=== PATIENT | female | born 1990 | race Caucasian/White ===

== ENCOUNTER → 2016-07-16 13:04 | Observation (INO) ==
[2016-07-16 11:08] VITALS: BP 121/74
--- NOTE | 2016-07-16 11:57 | OB/GYN History & Physical ---
Date of Encounter: 07/16/16 Time of Encounter: 11:50 Assessment and Plan (1) 38 weeks gestation of Current visit: Yes Status: Acute Labor eval Bedside JANICE per Dr Aburto Serial Cervical exams POC per consult with Dr Aburto. History of Present Illness Chief complaint: Proteinuria HPI: Ms. Luna is a 26 year old female at 38 weeks 5 days gestation that is here for a labor evaluation. She was seen in the office today for a routine appointment and c/o increased fatigue, irregular contractions, and measuring smaller than dates. She states positive movement; she denies LOF, vaginal bleeding, headache, visual disturbance, and epigastric pain. She has a history of kidney stones in the first trimester; the remainder of her was normal. She is GBS negative. She is O positive and varicella equivocal. She is immune to rubella and she is not positive for HIV or Hepatitis B. Past Med Surg Social Fam HX - Past Medical History Psychiatric history: no psych history - Social History Smoking Status: Never smoker - Family History Mother Living Status: Still Living Obstetrical History - Pregnancies : 2 Para: 1 Term: 1 : 0 Ab's: 0 Livin Medications and Allergies Complete Caplet 1 tab PO DAILY 07/16/16 [History] Allergies No Known Allergies Allergy (Verified 07/16/16 11:06) Review of System OB All systems PM: reviewed and no additional remarkable complaints except as stated Exam - Vital Signs Vital signs: Initial Vital Signs Temp Pulse Resp BP 98.0 F 76 14 121/74 07/16/16 10:39 07/16/16 10:39 07/16/16 10:39 07/16/16 10:39 - Constitutional Constitutional: well developed, well nourished, no acute distress, average body habitus - HEENT HEENT: Mucus Membranes Moist - Neck Neck exam: full ROM, normal inspection - Lungs Respiratory exam: CTAB - Cardiovascular Cardiovascular exam: RRR, +S1, +S2 - Abdomen Abdomen: Present: bowel sounds normal, gravid, non tender - Extremities Extremities exam: normal capillary refill, normal inspection, radial pulses palpable and symetrical Deep Tendon Reflex Grade: 2+ Normal - Cervix Dilation: 5 (per office today) Effacement: 70 (per office today) Station: 0 - Uterus Uterus exam: Present: normal size - Comments Comments: FHTs 135 with moderate variability and no decels noted TOCO no contractions noted; uterus palpates soft. Results All other labs normal. - VTE Reasons for not Prescribing Prophylaxis: Treatment not Indicated - Low risk for VTE
--- NOTE | 2016-07-16 13:00 | Discharge Summary ---
Date of Encounter: 07/16/16 Time of Encounter: 13:01 - Discharge Diagnosis (1) 38 weeks gestation of Priority: Primary Status: Acute Comments: Discharge home with labor precautions. No cervical change since being seen in the office this morning. Follow up in office with routine care as ordered. - Discharge Medications Home Medications: Complete Caplet 1 tab PO DAILY 07/16/16 [History] Allergies/Adverse Reactions: Allergies No Known Allergies Allergy (Verified 07/16/16 11:06) Date of admission: 07/16/16 10:27 Primary care physician: PCP NO Discharging clinician: Kary Jarquin - Patient Status Disposition: Home, Self-Care Condition: Good Functional capacity at discharge: independent ambulation - Discharge Instructions Follow Up With: DAYAMI,PCP [Primary Care Provider] - Mary Aburto MD [Partnered Physician] - Additional Instructions: LABOR AND DELIVERY DISCHARGE INSTRUCTIONS Signs and Symptoms to be Reported to your Doctor Immediately: * Sudden gush, continuous or intermittent lead of fluid from vagina (note the time of gush and color of fluid) * Onset of bright red vaginal bleeding with or without pain (if you had a vaginal exam during this visit you may notice some dark red spotting. This is normal.) * Contractions that are 5 minutes apart (from the beginning of one contraction to the beginning of the next) and last 45-60 seonds; contractions that you can no longer walk, talk or laugh through. * A change in the baby's activity. This could be an increase or decrease in activity. * Severe headache which does not go away with tylenol. * Sudden swelling in the face, hands, arms and/or legs. * Upper abdominal pain - sometimes associated with heartburn or nausea and is not relieved by Maalox, Mylanta or Tums. * Kick Counts __ One hour after a meal, lay down on one side in a quiet place. Count the number of time the baby moves during an hour. If less than 6 movements, notify your physician Diet: *Force fluids, 8 to 10 tall glasses of fluid per day - may include popsicles and jello *Limit caffeine - this includes chocolate, coffee, tea, any soft drink containing such as all cassidy, Spencer Yellow and Mountain Dew - Diet and Activity Activity: increase activity as tolerated Diet: regular diet Hospital Course [employer] Time Attestation: Total time spent providing and/or coordinating discharge services: Time Spent: Less than 30 minutes Exam - Constitutional Vitals: Temp Pulse Resp BP 98.0 F 76 14 121/74 07/16/16 10:39 07/16/16 10:39 07/16/16 10:39 07/16/16 10:39 General appearance IM: cooperative, A&O X 3, pleasant - Respiratory Respiratory exam: Present: CTAB - Cardiovascular Cardiovascular exam IM: Present: RRR, +S1, +S2 - GI/Abdominal GI/Abdominal exam IM: normal bowel sounds, soft - Additional comments: Uterus measures appropriately for gestational age. Cervix 5/70/-1 soft midposition fetus vertex; no change from previous check FHTs 135 moderate variability with accels; category I TOCO no contractions, uterus palpates soft - VTE Reasons for not Prescribing Prophylaxis: Treatment not Indicated - Low risk for VTE
== END | disposition home or self-care (01) ==
LOC: 1NENULAB
PROVIDERS: ADMIT Obstetrics & Gynecology; ATTEND Obstetrics & Gynecology

== ENCOUNTER 2016-07-16 21:51 | Inpatient (IN) ==
--- NOTE | 2016-07-16 17:15 | OB/GYN Progress Note ---
Date of Encounter: 07/16/16 Time of Encounter: 17:04 - Assessment and Plan (1) Uterine contractions during Current Visit: Yes Status: Acute Following for active labor (2) 38 weeks gestation of Current Visit: No Status: Acute Subjective - Subjective Principal diagnosis: 38 wk Labor eval Interval history: The patient is a 26-year-old female at 38 weeks 5 days. Returns to labor and delivery with concerns of onset of labor with increasing pressure and contractions. She denies loss of fluid or vaginal bleeding other than show from exams. Fetus has been active. Antepartum ROS: movement normal, contractions, no loss of fluid, no vaginal bleeding Objective - Vital Signs Vital Signs: Intake and Output 07/16/16 07/16/16 07/16/16 07:59 15:59 23:59 Other: Weight 80.1 kg Patient Weight 07/16/16 23:59 Weight 80.1 kg - Exam FHR: category 1 FHR comments: 120s baseline, ctx q 5-7' Auscultation: bilateral: normal Abdomen: Present: soft, gravid. Absent: tenderness Cervical dilation: 6 Cervix effacement: 80 station: -1 - Allied health notes Allied health notes reviewed: nursing
[2016-07-16 19:02] LABS: Basophils % 0.3 %; Eosinophils # 0.1 K/mcL (0.0-0.6); Hematocrit 39.8 % (35.3-44.9); Hemoglobin 13.3 g/dL (11.5-15.4); Immature Granulocytes % 0.5 % (0-4); Immature Platelets 3.5 % (1.1-6.1); Lymphocytes # 1.8 K/mcL (0.6-4.6); Lymphocytes % 17.1 %; Mean Corpuscular HGB Conc 33.4 g/dL (31.6-35.5); Mean Corpuscular Hemoglobin 29.2 pg (28.0-33.3); Mean Corpuscular Volume 87.3 fL (83.0-100.0); Mean Platelet Volume 9.6 fL (9.4-12.4); Monocytes # 0.6 K/mcL (0.0-1.3); Monocytes % 5.4 %; Platelet Count 217 K/mcL (140-400); Red Blood Count 4.56 M/mcL (3.82-4.97); Red Cell Distribution Width 13.6 % (11.5-14.5); Segmented Neutrophils % 75.7 %
--- NOTE | 2016-07-16 19:12 | Anesthesia Evaluation PreOp ---
Date of Encounter: 07/16/16 Time of Encounter: 18:50 - Past History Planned Operation: epidural Cardiac History: Denies any Significant Hx Pulmonary History: Denies Any Significant HX KETTLE GIRL History: Denies Any Significant HX Other Medical History: Renal (stones) Anesthesia History: No Prior Anesthetic Complications (vag delivery X1) : Yes Test: Positive Alcohol Use: none Drug use: none Medications and Allergies Complete Caplet 1 tab PO DAILY 07/16/16 [History] Allergies No Known Allergies Allergy (Verified 07/16/16 11:06) - Meds/Allergy Pre-op Review Medications Reviewed: Yes Allergies Reviewed: Yes Beta Blockers on Current Med List: No Anesthesia Results - Labs 07/16/16 18:50 Anesthesia Exam 3 Vital Signs Time 1850 BP 116/78 Pulse 76 Resp 16 O2 Sat Height: 65 Weight: 177 pounds NPO (# of Hours): 1400 lunch Pain Scale: 6 Pain Scale Used: Numeric (1 - 10) - HEENT Pupil (Motor): Pupils equal Mallampati: II Teeth: Normal Oral Opening: Greater than 3 - KETTLE GIRL LOC: Oriented KETTLE GIRL Motor: Normal RUE, Normal LUE, Normal RLE, Normal LLE, Normal Face KETTLE GIRL Sensory: Normal: RUE, LUE, RLE, LLE, Face - Cardiac Rhythm: Regular Murmur: None JVD: No Carotid Bruit: No - Pulmonary Breath Sounds: bilateral Clear Respiratory Effort: Symmetrical Anesthesia Assess/Plan ASA Score: 2 Modified [place] Scale for Level of Consciousness: Cooperative, oriented, and tranquil Anesthetic Plan: Regional Monitoring Plan: Standard Monitors Recovery Plan: Other
--- NOTE | 2016-07-16 19:29 | OB Labor Progress Note ---
Date of Encounter: 07/16/16 Time of Encounter: 19:06
--- NOTE | 2016-07-16 19:34 | OB/GYN History & Physical ---
Date of Encounter: 07/16/16 Time of Encounter: 19:32 Assessment and Plan (1) Uterine contractions during Current visit: Yes Status: Acute (2) 38 weeks gestation of Current visit: No Status: Acute History of Present Illness HPI: Addendum: please see H&P dictated earlier today at 1150, 07/16/16. Patient was admitted and then discharged and has returned in spontaneous active labor. Past Med Surg Social Fam HX - Past Medical History Medical history: no medical history Psychiatric history: no psych history - Past Surgical History Surgical History: other - Social History Smoking Status: Never smoker Smokeless Tobacco Status: No Alcohol use: none Drug use: none - Family History Mother Living Status: Still Living Obstetrical History - Pregnancies : 2 Medications and Allergies Complete Caplet 1 tab PO DAILY 07/16/16 [History] Allergies No Known Allergies Allergy (Verified 07/16/16 11:06) Results Result Diagrams: 07/16/16 18:50 All other labs normal. - VTE Reasons for not Prescribing Prophylaxis: Treatment not Indicated - Low risk for VTE
--- NOTE | 2016-07-16 19:39 | OB Labor Progress Note ---
Date of Encounter: 07/16/16 Time of Encounter: 19:34 Labor Progress Note - Subjective Subjective: Pt uncomfortable with contractions. No LOF or VB. +FM - Vital Signs Vital Signs: Afeb, VSS - Cervix Cervix: 6-7/90/0 vtx w/ BBOF - Heart Tones Heart Tones: 120s baseline, CAT 1 - Tracy Tracy: tx q 4-7', spontaneous - Interventions Interventions: 38w5d IUP in spontaneous labor - Plan Plan: Pain management, anticipate vaginal delivery
--- NOTE | 2016-07-16 20:46 | Anesthesia Procedures ---
Date of Encounter: 07/16/16 Time of Encounter: 20:00 Procedures: Anesthesia - Epidural/Spinal Patient ID/Chart reviewed: Yes Patient examined: Yes OB Eval: Gestational age: 38 weeks 5 days OB Eval: : 2 OB Eval: Hx Para: 1 OB Eval: Dilated at (cm): 7 OB Eval: Contractions: Non-stressed pattern Consent Obtained: Yes Supplemental Oxygen: None/Room Air Site Prep: Aseptic Technique, Sterile prep and drape, Povidone-Iodine 1% Patient position: upright Local Anesthetic: Lidocaine 1% Amount of Local Anesthetic used: 3 Touhy Needle Gauge: 18 Touhy Needle Depth (cm): 4 Catheter Depth at Skin (cm): 11 Test Dose (1.5% Lido + Epi): Volume given (mls): 3 Test Dose Result: Negative Loading Dose: 0.25% Marcaine (mls): 5 Loading Dose: Fentanyl (mcg): 100 Loading Dose: Other: 3 ml saline Loading Dose Administered: Thru Catheter Infusion Med: 0.125% Bupivacaine w/ 2 mcg/ml Fentanyl Infusion Rate (mls/hr): [address]: Tegaderm, Tape Interspace Used: L2-L3 Loss of Resistance (JEFRY): Yes (air) Blood: No CSF: No Paresthesia: No Procedure: 3 Vital Signs Time 1999 start 2010 test 2017 bolus 2025 finish BP 123/79 135/88 117/73 116/72 Pulse 80 69 87 72 Resp 16 16 16 16 O2 Sat heart tones 140 throughout
--- NOTE | 2016-07-16 21:27 | OB Labor Progress Note ---
Date of Encounter: 07/16/16 Time of Encounter: 21:25 Labor Progress Note - Subjective Subjective: The patient is comfortable with her epidural - Vital Signs Vital Signs: Afebrile vital signs stable - Cervix Cervix: 7cm/90/0, bulgy bag of water, vtx - Heart Tones Heart Tones: 120s baseline, CAT 1 - [place]: Contractions every 3-5 minutes, spontaneous - Interventions Interventions: 38 weeks 5 days IUP in spontaneous labor, anticipate vaginal delivery, status post epidural for pain management - Plan Plan: Amniotomy with moderate amount of pink tinged fluid without meconium noted.
[~2016-07-16 21:51] MED LIST: *HR* FentaNYL (PF) 100 MCG/2 ML VIAL EP ONE; *HR* FentaNYL (PF) 100 MCG/2 ML VIAL ONE; 0.9 % Sodium Chloride Mini Bag 100 ML ONE; Bupivacaine-MPF 0.25% 10 ML VIAL EP ONE; Bupivacaine-MPF 0.25% 10 ML VIAL ONE; Epidural Premix (fent/bupiv) 110 ML EP ONE; Epidural Premix (fent/bupiv) 110 ML EP SCH; Famotidine 20 MG/2 ML VIAL IVP PRN; Metoclopramide 10 MG/2 ML VIAL IVP PRN; Naloxone 0.4 MG/ML INJ IVP PRN; Ondansetron 4 MG/2 ML VIAL IVP ONE; Ondansetron 4 MG/2 ML VIAL ONE; Ondansetron 8 MG in 0.9 % Sodium Chloride 50 ML IVPB ONE; Ringers Solution, Lactated 1,000 ML IVC SCH; Ringers Solution, Lactated 1,000 ML ONE
[2016-07-16] MEDS ORDERED: Oxytocin 20 units/ LR 1000 mL 20 UNIT/1,000 ML BAG IVC ONE (23:33)
--- NOTE | 2016-07-17 00:25 | OB/GYN Procedure Note ---
Delivery - Delivery Date: 07/16/16 Provider: Mary Aburto Intrapartum events: none Delivery induction: none Delivery augmentation: rupture of membranes Delivery monitor: external FHT, external uterine Anesthesia: epidural Estimated Blood Loss: 200 - (s) Infant A Delivery Date: 07/16/16 Infant Delivery Time: 23:44 Presentation: vertex Position: YANCY Route of delivery: Gender: Female Viability: Viable Pounds: 7 Ounces: 8 at 1 minute: 9 at 5 mins: 10 Shoulder Dystocia: not encountered Placenta: spontaneous, uterine exploration Cord: nuchal cord, 3 umbilical vessels, nuchal reduced - Repair Episiotomy: none Laceration Description: Periurethral, Perineal - 2nd Degree, Labial, Superficial - Complications Delivery complications: none Delivery comments: The patient was complete and pushing with epidural anesthesia and in 1 contraction a spontaneous vaginal delivery in the YANCY position of a vigorous female weighing 7 lbs. 8 oz. with Apgars of 9 at 1 minute and 10 at 5 minutes. was placed on the maternal abdomen. The cord was clamped and cut after pulsations ceased. Cord blood obtained. The placenta was delivered spontaneous and intact. Superficial right labial laceration was hemostatic and not repaired. There is a first-degree perineal laceration which was hemostatic and was repaired with 4-0 Vicryl in a subcuticular fashion. Second-degree midline perineal laceration which was parallel to the superficial laceration was repaired with 3-0 Vicryl in the usual fashion. Estimated blood loss 200 mL , complications none - Disposition Mom disposition: stable in LDR disposition: stable in LDR
[2016-07-17] MEDS ORDERED: Oxytocin 20 units/ LR 1000 mL 20 UNIT/1,000 ML BAG IVC ONE (00:56)
[2016-07-17] MEDS ORDERED: Measles/Mumps/Rubella Vacc 0.5 ML VIAL SQ PRN (02:34)
[2016-07-17] MEDS ORDERED: Acetaminophen 325 MG TABLET PO PRN (02:34)
[2016-07-17] MEDS ORDERED: Oxytocin 20 units/ LR 1000 mL 20 UNIT/1,000 ML BAG IVC SCH (02:34)
[2016-07-17] MEDS ORDERED: *HR* HYDROcodone/Acet 5/325 mg TABLET PO PRN (02:34)
[2016-07-17] MEDS ORDERED: Ondansetron 4 MG/2 ML VIAL IVP ONE (02:37)
[2016-07-17] MEDS: Ibuprofen 600 MG TABLET PO PRN ×2 (03:37→16:30)
[2016-07-17 06:23] LABS: Basophils % 0.2 %; Eosinophils # 0.1 K/mcL (0.0-0.6); Eosinophils % 0.9 %; Hematocrit 30.3 % (35.3-44.9); Immature Granulocytes % 0.7 % (0-4); Immature Platelets 2.7 % (1.1-6.1); Lymphocytes # 1.5 K/mcL (0.6-4.6); Lymphocytes % 11.9 %; Mean Corpuscular HGB Conc 33.3 g/dL (31.6-35.5); Mean Corpuscular Hemoglobin 29.4 pg (28.0-33.3); Mean Corpuscular Volume 88.3 fL (83.0-100.0); Monocytes # 0.6 K/mcL (0.0-1.3); Monocytes % 5.1 %; Neutrophils # 9.9 K/mcL (1.6-8.9); Platelet Count 167 K/mcL (140-400); Red Blood Count 3.43 M/mcL (3.82-4.97); Red Cell Distribution Width 13.7 % (11.5-14.5); Segmented Neutrophils % 81.2 %
[2016-07-17 06:24] LABS: Hemoglobin 10.1 g/dL (11.5-15.4)
[2016-07-17] MEDS ORDERED: Benzocaine/Menthol 56 GM AEROSOL SPRAY TP PRN (08:24)
[2016-07-17] MEDS ORDERED: Benzocaine/Menthol 56 GM AEROSOL SPRAY TP ONE (08:26)
[2016-07-17] MEDS: Prenatal Vit/FA 1 EACH TABLET PO SCH (08:34)
--- NOTE | 2016-07-17 08:49 | OB/GYN Progress Note ---
Date of Encounter: 07/17/16 Time of Encounter: 08:47 - Assessment and Plan (1) Vaginal delivery Current Visit: Yes Status: Acute Stable in . Continue current management plan. Anticipate DC tomorrow. Subjective - Subjective Interval history: Pt states feels well. Pain well managed on po pain medication. Patient reports: appetite normal, voiding normally, pain well controlled, ambulating normally : doing well Objective - Latest Vital Signs Latest vital signs: Vital Signs Temp Pulse Resp BP Pulse Ox 07/17/16 08:10 97.8 F 80 12 99/69 96 07/17/16 04:35 97.9 F 65 14 97/57 99 07/17/16 03:30 98.6 F 74 14 105/66 100 07/17/16 02:30 97.6 F 76 16 101/67 98 Intake and Output 07/16/16 07/17/16 07/17/16 23:59 07:59 15:59 Intake Total 200 / 200 Output Total 300 / 300 Balance -300 / -300 200 / 200 Intake: Oral 200 / 200 Output: Urine 300 / 300 Other: Weight 80.1 kg 76.113 kg Patient Weight 07/17/16 23:59 Weight 76.113 kg - Exam Lungs: bilateral: normal Chest: Normal S1, Normal S2 Extremities: Present: normal Abdomen: Present: normal appearance Uterus: Present: normal Uterus Position: At Umbilicus, Midline - Labs Labs: Laboratory Results - last 24 hr 07/16/16 07/17/16 18:50 05:35 WBC 10.6 12.2 H RBC 4.56 3.43 L Hgb 13.3 10.1 L D Hct 39.8 30.3 L MCV 87.3 88.3 MCH 29.2 29.4 MCHC 33.4 33.3 RDW 13.6 13.7 Plt Count 217 167 MPV 9.6 10.0 Immature Gran % 0.5 0.7 Seg Neutrophils % 75.7 81.2 Lymphocytes % 17.1 11.9 Monocytes % 5.4 5.1 Eosinophils % 1.0 0.9 Basophils % 0.3 0.2 Neutrophils # 8.0 9.9 H Lymphocytes # 1.8 1.5 Monocytes # 0.6 0.6 Eosinophils # 0.1 0.1 Basophils # 0.0 0.0 Immature Plt Fraction 3.5 2.7
[2016-07-18] MEDS: Ibuprofen 600 MG TABLET PO PRN ×2 (02:14→08:35)
[2016-07-18] MEDS: Prenatal Vit/FA 1 EACH TABLET PO SCH (09:31)
[2016-07-18 09:49] VITALS: BP 101/66
--- NOTE | 2016-07-18 11:10 | Discharge Summary ---
Date of Encounter: 07/18/16 Time of Encounter: 11:07 - Discharge Diagnosis (1) Mother currently breast-feeding Priority: Secondary Status: Acute (2) Vaginal delivery Priority: Primary Status: Acute Comments: Pt meeting milestones. - Discharge Medications Prescriptions: Ibuprofen [Motrin] 600 mg PO Q6HR PRN #60 tablet PRN Reason: Mild To Moderate Pain Docusate [Colace] 100 mg PO BID #60 capsule Home Medications: Complete Caplet 1 tab PO DAILY 07/16/16 [History] Benzocaine/Menthol [place] [Dermoplast [place]] 1 appl TP QID PRN #0 aerosol [Rx] Docusate [Colace] 100 mg PO BID #60 capsule 07/18/16 [Rx] Ibuprofen [Motrin] 600 mg PO Q6HR PRN #60 tablet 07/18/16 [Rx] Allergies/Adverse Reactions: Allergies No Known Allergies Allergy (Verified 07/16/16 11:06) Data Procedures and tests throughout hospitalization: Laboratory Tests 07/16/16 07/17/16 18:50 05:35 WBC 10.6 12.2 H RBC 4.56 3.43 L Hgb 13.3 10.1 L D Hct 39.8 30.3 L MCV 87.3 88.3 MCH 29.2 29.4 MCHC 33.4 33.3 RDW 13.6 13.7 Plt Count 217 167 MPV 9.6 10.0 Immature Gran % 0.5 0.7 Seg Neutrophils % 75.7 81.2 Lymphocytes % 17.1 11.9 Monocytes % 5.4 5.1 Eosinophils % 1.0 0.9 Basophils % 0.3 0.2 Neutrophils # 8.0 9.9 H Lymphocytes # 1.8 1.5 Monocytes # 0.6 0.6 Eosinophils # 0.1 0.1 Basophils # 0.0 0.0 Immature Plt Fraction 3.5 2.7 Date of admission: 07/16/16 21:51 Primary care physician: PCP NO Consults: 07/17/16 02:34 Consult to Laminator Preforms [CONS] Routine Comment: Vaginal delivery, consult needed Discharging clinician: Lori Garcia Anticipated date of discharge: 07/18/16 - Patient Status Disposition: Home, Self-Care Condition: Good Functional capacity at discharge: independent ambulation Overall status at discharge: patient is progressing back to baseline - Discharge Instructions Follow Up With: NO,PCP [Primary Care Provider] - Mary Aburto MD [Partnered Physician] - - Diet and Activity Activity: increase activity as tolerated Diet: regular diet Hospital Course Reason for admission: active labor Delivery: Episiotomy: none Laceration: 2nd degree Other procedures: none complications: none Discharge diagnosis: IUP at term delivered [place] baby: female Hospital course: - Delivery Date: 07/16/16 Provider: Mary Aburto Intrapartum events: none Delivery induction: none Delivery augmentation: rupture of membranes Delivery monitor: external FHT, external uterine Anesthesia: epidural Estimated Blood Loss: 200 - Infant (s) A Infant Delivery Date: 07/16/16 Delivery Time: 23:44 Presentation: vertex Position: YANCY Route of delivery: Gender: Female Viability: Viable Pounds: 7 Ounces: 8 at 1 minute: 9 at 5 mins: 10 Shoulder Dystocia: not encountered Placenta: spontaneous, uterine exploration Cord: nuchal cord, 3 umbilical vessels, nuchal reduced - Repair Episiotomy: none Laceration Description: Periurethral, Perineal - 2nd Degree, Labial, Superficial - Complications Delivery complications: none - Disposition Mom disposition: home PPD#2 disposition: home with mother, . Time Attestation: Total time spent providing and/or coordinating discharge services: Time Spent: Less than 30 minutes Exam - Constitutional Vitals: Temp Pulse Resp BP Pulse Ox 97.7 F 85 16 101/66 97 07/18/16 09:44 07/18/16 09:44 07/18/16 09:44 07/18/16 09:44 07/18/16 09:44 General appearance IM: A&O X 3, pleasant, no acute distress - Respiratory Respiratory exam: Present: CTAB - Cardiovascular Cardiovascular exam IM: Present: RRR, +S1, +S2 - GI/Abdominal GI/Abdominal exam IM: soft - Rectal Rectal exam: deferred - Uterine Tone: Firm Uterus Position: 1 Finger Below Umbilicus - Extremities Exam Extremities exam IM: Present: normal inspection - Neurological Exam Neurological exam: normal gait, oriented X3 - Psychiatric Additional comments: reports good mood
== END 2016-07-18 12:30 | disposition home or self-care (01) | DRG 775 ==
LOC: 1NENULAB → 1NENUOBS 07-17 02:54
PROVIDERS: ADMIT Obstetrics & Gynecology; ATTEND Obstetrics & Gynecology

== ENCOUNTER 2018-02-03 07:07 | Inpatient (IN) ==
[2018-02-03] MEDS ORDERED: Famotidine 20 MG/2 ML VIAL IVP PRN (08:20)
[2018-02-03] MEDS ORDERED: Ondansetron 4 MG/2 ML VIAL IVP PRN (08:20)
[2018-02-03] MEDS ORDERED: Metoclopramide 10 MG/2 ML VIAL IVP PRN (08:20)
[2018-02-03] MEDS ORDERED: Naloxone 0.4 MG/ML INJ IVP PRN (08:20)
[2018-02-03] MEDS ORDERED: *HR* Nalbuphine 10 MG/ML AMPUL IVP PRN (08:20)
[2018-02-03] MEDS ORDERED: Penicillin G Potassium 5,000,000 UNIT in 0.9 % Sodium Chloride Mini Bag 100 ML IVPB ONE (08:26)
[2018-02-03] MEDS ORDERED: miSOPROStol 25 MCG TABLET PO PRN (08:37)
--- NOTE | 2018-02-03 08:53 | History & Physical Report ---
Date of Encounter: 02/03/18 Time of Encounter: 08:52 24 Hour HP Update - Instructions Instructions: If the History and Physical is less than 30 days old and was completed prior to A.M. admission and or procedure and has NOT been updated on calendar day of procedure please complete this update prior to performing procedure. - Update Patient reports changes in Medical Condition: Yes Changes in examination, assessment, or condition: Yes Changes in Medication: No Preop tests/diagnostics Reviewed: Yes Surgery Remains Indicated: Yes Consent for Planned Operative Procedure(s) Verified: Yes Review of Patient reveals the following changes:: /-2 vtx Additions to current History and Physical: Irregular ctx at home - Pre-Operative Checklist Preoperative Checklist Indicated: Yes Prophylactic Antibiotic Ordered: Yes Home Medications Include Beta Candie: No Is VTE Prophylaxis Indicated?: NO
[2018-02-03] MEDS: Ringers Solution, Lactated 1,000 ML IVC SCH ×2 (09:02→13:03)
[2018-02-03 09:09] LABS: Basophils % 0.3 %; Eosinophils % 1.1 %; Hemoglobin 11.5 g/dL (11.5-15.4); Immature Granulocytes % 0.6 % (0-4); Mean Corpuscular HGB Conc 32.9 g/dL (31.6-35.5); Mean Corpuscular Hemoglobin 27.8 pg (28.0-33.3); Mean Corpuscular Volume 84.5 fL (83.0-100.0); Mean Platelet Volume 9.6 fL (9.4-12.4); Monocytes % 6.3 %; Platelet Count 250 K/mcL (140-400); Red Blood Count 4.14 M/mcL (3.82-4.97); Red Cell Distribution Width 14.5 % (11.5-14.5); Segmented Neutrophils % 70.7 %
[2018-02-03 09:10] LABS: Eosinophils # 0.1 K/mcL (0.0-0.6); Monocytes # 0.6 K/mcL (0.0-1.3); Neutrophils # 6.6 K/mcL (1.6-8.9)
--- NOTE | 2018-02-03 10:56 | Anesthesia Evaluation PreOp ---
Date of Encounter: 02/03/18 Time of Encounter: 10:50 - Past History Planned Operation: MARTA Cardiac History: Denies any Significant Hx Pulmonary History: Denies Any Significant HX GREASE MAKER HEAD History: Denies Any Significant HX Other Medical History: Renal (H/O renal stones, passed on own no surgical interv ention), GERD ( induced) Anesthesia History: No Prior Anesthetic Complications, Past Anesthesia (MARTA x 2 no complications, states "curvature in Lumbar spine") : Yes (39.1) Test: Positive Alcohol Use: none Drug use: none Medications and Allergies Complete Caplet 1 tab PO DAILY 07/16/16 [History] Diclegis Dr 10-10 mg Tablet 1 tab PO DAILY PRN 02/03/18 [History] Allergy/AdvReac Type Severity Reaction Status Date / Time No Known Allergies Allergy Verified 07/16/16 11:06 - Meds/Allergy Pre-op Review Medications Reviewed: Yes Allergies Reviewed: Yes Beta Blockers on Current Med List: No Anesthesia Results - Labs 02/03/18 08:45 Anesthesia Exam 108/64 84 14 Height: 65 Weight: 92.2 NPO (# of Hours): [place] Pain Scale: 0 - HEENT Pupil (Motor): Pupils equal Mallampati: II Teeth: Normal (cap central incisors) Oral Opening: Greater than 3 - GREASE MAKER HEAD LOC: Oriented GREASE MAKER HEAD Motor: Normal RUE, Normal LUE, Normal RLE, Normal LLE, Normal Face GREASE MAKER HEAD Sensory: Normal: RUE, LUE, RLE, LLE, Face - Cardiac Rhythm: Regular Murmur: None JVD: No Carotid Bruit: No - Pulmonary Breath Sounds: bilateral Clear Respiratory Effort: Symmetrical Anesthesia Assess/Plan ASA Score: 2 Level of consciousness: Cooperative Anesthetic Plan: Epidural Autologous Blood: Yes Monitoring Plan: Standard Monitors
[2018-02-03] MEDS ORDERED: Epidural Premix (fent/bupiv) 110 ML EP SCH (11:15)
[2018-02-03 11:21] LABS: Amphetamine Screen,Urine Negative ng/mL (Cutoff=1000); Barbiturate Screen,Urine Negative ng/mL (Cutoff=200); Benzodiazepines Screen,Urine Negative ng/mL (Cutoff=200); Cannabinoid Screen,Urine Negative ng/mL (Cutoff = 50); Cocaine Screen,Urine Negative ng/mL (Cutoff= 300); Opiate Screen,Urine Negative ng/mL (Cutoff=300); Phencyclidine Screen,Urine Negative ng/mL (Cutoff=25)
[2018-02-03] MEDS ORDERED: Penicillin G Potassium 2,500,000 UNIT in 0.9 % Sodium Chloride 100 ML IVPB SCH (12:00)
[2018-02-03] MEDS ORDERED: Lidocaine 1% 20 ML MDV ONE (12:17)
[2018-02-03] MEDS ORDERED: *HR* FentaNYL (PF) 100 MCG/2 ML VIAL ONE (12:17)
[2018-02-03] MEDS ORDERED: EPHEDrine 50 MG/ML VIAL ONE (12:17)
[2018-02-03] MEDS ORDERED: Lidocaine/EPI 1:200k 2% PF 20 ML VIAL ONE (12:17)
[2018-02-03] MEDS ORDERED: Bupivacaine-MPF 0.25% 10 ML VIAL ONE (12:18)
--- NOTE | 2018-02-03 13:21 | Anesthesia Procedures ---
Addendum entered and electronically signed by Paul Castro CRNA 02/04/18 07:01: Delivery Date: 02/03/18 Delivery Time: 15:07 Original Note: Date of Encounter: 02/03/18 Time of Encounter: 12:32 Procedures: Anesthesia - Epidural/Spinal Patient ID/Chart reviewed: Yes Patient examined: Yes OB Eval: Gestational age: 39 weeks 1 day OB Eval: : 3 OB Eval: Hx Para: 2 OB Eval: Dilated at (cm): 3 OB Eval: Contractions: Non-stressed pattern Consent Obtained: Yes Supplemental Oxygen: None/Room Air Site Prep: Aseptic Technique, Sterile prep and drape, Povidone-Iodine 1% Patient position: upright Local Anesthetic: Lidocaine 1% Amount of Local Anesthetic used: 3 Touhy Needle Gauge: 18 Touhy Needle Depth (cm): 5 Catheter Depth at Skin (cm): 12 Test Dose (1.5% Lido + Epi): Volume given (mls): 3 Test Dose Result: Negative Loading Dose: 0.25% Marcaine (mls): 5 Loading Dose: Fentanyl (mcg): 100 Loading Dose: Other: 3 ml saline Loading Dose Administered: Thru Catheter Infusion Med: 0.125% Bupivacaine w/ 2 mcg/ml Fentanyl Infusion Rate (mls/hr): [address]: Tegaderm, Tape Interspace Used: L3-L4 Loss of Resistance (JEFRY): Yes (air) Blood: No CSF: No Paresthesia: No Procedure: pt placed sitting monitors on time out performed, l3/l4 interspace used, betadine prep and sterile drape applied, 1% lidocaine at skin, epidural needle placed and advanced using jefry with air, epidural space encountered at 5 cm, cath placed at 12 cm at skin, test dose given, negative, bolus given, patient tolerated well vs stable throughout procedure Vital Signs Time 1232 start 1250 test 1302 finish BP 120/71 110/67 109/73 Pulse 68 68 75 Resp 16 16 16 O2 Sat 98 98 98
--- NOTE | 2018-02-03 13:31 | OB Labor Progress Note ---
Date of Encounter: 02/03/18 Time of Encounter: 13:28 Labor Progress Note - Subjective Subjective: The patient is comfortable after her epidural. - Vital Signs Vital Signs: Afebrile, vital signs stable - Cervix Cervix: 6/90/-2, vertex with forebag - Heart Tones Heart Tones: heart tones are 130s baseline, CAT 1 - Thoreau Thoreau: Contractions irregular. The patient has received 1 dose of oral Cytotec - Interventions Interventions: 39 week IUP with positive GBS culture for induction of labor. The patient is status post 2 doses of penicillin. - Plan Plan: Amniotomy performed, clear fluid seen/moderate amount. Continue induction of labor at this time with anticipation of vaginal delivery
[2018-02-03] MEDS ORDERED: Oxytocin 20 units/ LR 1000 mL 20 UNIT/1,000 ML BAG IVC SCH ×2 (13:45→17:34)
--- NOTE | 2018-02-03 15:54 | OB/GYN Procedure Note ---
Delivery - Delivery Date: 02/03/18 Provider: Mary Aburto Intrapartum events: none Delivery induction: misoprostol Delivery augmentation: rupture of membranes Delivery monitor: external FHT, external uterine Anesthesia: epidural Quantitated Blood Loss: 50 - Infant (s) A Delivery Date: 02/03/18 Delivery Time: 15:07 Presentation: ranulfo breech (Left sacrum anterior) Route of delivery: Gender: Female Viability: Viable Pounds: 7 Ounces: 6 Weight Gram: 3.335 kg at 1 minute: 8 at 5 mins: 9 Shoulder Dystocia: not encountered Specimens collected: cord blood Placenta: spontaneous Cord: 3 umbilical vessels - Repair Episiotomy: none Laceration Description: Perineal - 2nd Degree - Complications Delivery complications: none Delivery comments: Patient complete and pushing with 3 contractions with a spontaneous vaginal delivery in the ranulfo breech presentation, LSA, of a vigorous female weighing 7 lbs. 6 oz. with Apgars of 8 at 1 minute and 9 at 5 minutes. Infant was placed on the maternal abdomen and handed to the nursery care team. Cord was clamped and cut after pulsations ceased. Three-vessel cord identified. Cord blood was obtained. Placenta was delivered spontaneous and intact. There was a second- degree midline laceration which was repaired with 3-0 Monocryl in the usual fashion. No other lacerations noted estimated blood loss 50 mL's. Complications none. Both mother and infant recovering in stable condition in the LDR. - Disposition Mom disposition: stable in LDR [place] disposition: stable in LDR
[2018-02-03] MEDS ORDERED: Rho Immune Globulin 1,500 UNIT SYRINGE IM PRN (17:34)
[2018-02-03] MEDS ORDERED: *HR* HYDROcodone/Acet 5/325 mg TABLET PO PRN (17:34)
[2018-02-03] MEDS ORDERED: Sennosides 8.6 MG TABLET PO PRN (17:34)
[2018-02-03] MEDS ORDERED: Acetaminophen 325 MG TABLET PO SCH (18:00)
[2018-02-03] MEDS: Ibuprofen 600 MG TABLET PO SCH (19:44)
[2018-02-04] MEDS: Ibuprofen 600 MG TABLET PO SCH ×2 (05:25→12:38)
[2018-02-04 05:42] LABS: Basophils % 0.4 %; Eosinophils # 0.1 K/mcL (0.0-0.6); Eosinophils % 1.2 %; Hematocrit 32.7 % (35.3-44.9); Hemoglobin 10.6 g/dL (11.5-15.4); Immature Granulocytes % 0.6 % (0-4); Lymphocytes # 2.1 K/mcL (0.6-4.6); Lymphocytes % 18.6 %; Mean Corpuscular HGB Conc 32.4 g/dL (31.6-35.5); Mean Corpuscular Hemoglobin 27.5 pg (28.0-33.3); Mean Corpuscular Volume 84.7 fL (83.0-100.0); Mean Platelet Volume 9.5 fL (9.4-12.4); Monocytes # 0.7 K/mcL (0.0-1.3); Monocytes % 6.4 %; Neutrophils # 8.1 K/mcL (1.6-8.9); Platelet Count 226 K/mcL (140-400); Red Blood Count 3.86 M/mcL (3.82-4.97); Red Cell Distribution Width 14.6 % (11.5-14.5); Segmented Neutrophils % 72.8 %
--- NOTE | 2018-02-04 07:04 | Anesthesia Evaluation Post Op ---
Date of Encounter: 02/04/18 Time of Encounter: 07:01 - Vital Signs Vital Signs: vss - Lungs Lungs: Clear Ascult./Percussion - Airway Airway: Non-obstructed - Mental Status Mental Status: Alert & Oriented, Answers Appropriately - Pain Pain Scale used: Anthony (Faces) - Nausea Vomiting Nausea Vomiting: Not Present - Discharge PostOp Status: Transfer Patient to floor
[2018-02-04 08:38] VITALS: BP 103/67
[2018-02-04] MEDS ORDERED: Prenatal Vit/FA 1 EACH TABLET PO SCH (09:00)
--- NOTE | 2018-02-04 09:39 | Discharge Summary ---
Date of Encounter: 02/04/18 Time of Encounter: 09:37 - Discharge Diagnosis (1) Mother currently breast-feeding Priority: Secondary Status: Acute (2) Vaginal delivery Priority: Primary Status: Acute Comments: Pt meeting milestones. Discharge home today. - Discharge Medications Prescriptions: HYDROcodone/Acet 5/325 mg [Conklin 5-325 mg] 1 tab PO Q6H PRN 5 Days #20 tab PRN Reason: Moderate Pain Ibuprofen [Ibu] 600 mg PO Q6H PRN #60 tablet PRN Reason: pain Home Medications: Complete Caplet 1 tab PO DAILY 07/16/16 [History] Diclegis Dr 10-10 mg Tablet 1 tab PO DAILY PRN 02/03/18 [History] HYDROcodone/Acet 5/325 mg [Conklin 5-325 mg] 1 tab PO Q6H PRN 5 Days #20 tab [Rx] Ibuprofen [Ibu] 600 mg PO Q6H PRN #60 tablet 02/03/18 [Rx] Allergies/Adverse Reactions: Allergy/AdvReac Type Severity Reaction Status Date / Time No Known Allergies Allergy Verified 07/16/16 11:06 Data Procedures and tests throughout hospitalization: Laboratory Tests 02/03/18 02/03/18 02/04/18 08:45 10:20 05:30 WBC 9.3 11.2 H RBC 4.14 3.86 Hgb 11.5 10.6 L Hct 35.0 L 32.7 L MCV 84.5 84.7 MCH 27.8 L 27.5 L MCHC 32.9 32.4 RDW 14.5 14.6 H Plt Count 250 226 MPV 9.6 9.5 Immature Gran % 0.6 0.6 Seg Neutrophils % 70.7 72.8 Lymphocytes % 21.0 18.6 Monocytes % 6.3 6.4 Eosinophils % 1.1 1.2 Basophils % 0.3 0.4 Neutrophils # 6.6 8.1 Lymphocytes # 2.0 2.1 Monocytes # 0.6 0.7 Eosinophils # 0.1 0.1 Basophils # 0.0 0.0 Urine Opiates Screen Negative Ur Barbiturates Screen Negative Ur Phencyclidine Scrn Negative Ur Amphetamines Screen Negative U Benzodiazepines Scrn Negative Urine Cocaine Screen Negative U Marijuana (THC) Screen Negative Ur Drug Screen Interp See Below Labs on day of discharge: Labs from last 24 hours 02/04/18 02/03/18 05:30 10:20 WBC 11.2 H RBC 3.86 Hgb 10.6 L Hct 32.7 L MCV 84.7 MCH 27.5 L MCHC 32.4 RDW 14.6 H Plt Count 226 MPV 9.5 Immature Gran % 0.6 Seg Neutrophils % 72.8 Lymphocytes % 18.6 Monocytes % 6.4 Eosinophils % 1.2 Basophils % 0.4 Neutrophils # 8.1 Lymphocytes # 2.1 Monocytes # 0.7 Eosinophils # 0.1 Basophils # 0.0 Urine Opiates Screen Negative Ur Barbiturates Screen Negative Ur Phencyclidine Scrn Negative Ur Amphetamines Screen Negative U Benzodiazepines Scrn Negative Urine Cocaine Screen Negative U Marijuana (THC) Screen Negative Ur Drug Screen Interp See Below Date of admission: 02/03/18 07:07 Primary care physician: PCP OG Consults: 02/03/18 17:34 Consult to Centrifugal Separator [CONS] Routine Comment: Vaginal delivery, consult needed Discharging clinician: Lori Garcia Anticipated date of discharge: 02/04/18 - Patient Status Disposition: Home, Self-Care Condition: Good Functional capacity at discharge: independent ambulation Overall status at discharge: patient is progressing back to baseline - Discharge Instructions Follow Up With: NONE,PCP [Primary Care Provider] - Mary Aburto MD [Partnered Physician] - - Diet and Activity Activity: increase activity as tolerated Diet: regular diet Hospital Course Reason for admission: induction of labor Delivery: breech extraction Episiotomy: none Laceration: 2nd degree Other procedures: none complications: none Discharge diagnosis: IUP at term delivered baby: female Hospital course: - Delivery Date: 02/03/18 Provider: Mary Aburto Intrapartum events: none Delivery induction: misoprostol Delivery augmentation: rupture of membranes Delivery monitor: external FHT, external uterine Anesthesia: epidural Quantitated Blood Loss: 50 - (s) Infant A Delivery Date: 02/03/18 Infant Delivery Time: 15:07 Presentation: ranulfo breech (Left sacrum anterior) (unknown until time of delivery) Route of delivery: Gender: Female Viability: Viable Pounds: 7 Ounces: 6 Weight Gram: 3.335 kg at 1 minute: 8 at 5 mins: 9 Shoulder Dystocia: not encountered Specimens collected: cord blood Placenta: spontaneous Cord: 3 umbilical vessels - Repair Episiotomy: none Laceration Description: Perineal - 2nd Degree - Complications Delivery complications: none - Disposition Mom disposition: home PPD1 [place] disposition: home with mother, Time Attestation: Total time spent providing and/or coordinating discharge services: Time Spent: Less than 30 minutes Exam - Constitutional Vitals: Temp Pulse Resp BP Pulse Ox 98.3 F 72 14 103/67 99 02/04/18 08:37 02/04/18 08:37 02/04/18 08:37 02/04/18 08:37 02/04/18 08:37 General appearance IM: A&O X 3 - Respiratory Respiratory exam: Present: CTAB - Cardiovascular Cardiovascular exam IM: Present: RRR - GI/Abdominal GI/Abdominal exam IM: soft - Uterine Tone: Firm Uterus Position: 2 Fingers Below Umbilicus - Extremities Exam Extremities exam IM: Present: normal inspection - Neurological Exam Neurological exam: normal gait, oriented X3 - Psychiatric Additional comments: reports good mood
== END 2018-02-04 17:10 | disposition home or self-care (01) | DRG 807 ==
LOC: 1NENULAB 07:07 → 1NENUOBS 17:43
PROVIDERS: ADMIT Obstetrics & Gynecology; ATTEND Obstetrics & Gynecology

== ENCOUNTER 2020-07-19 07:55 | Inpatient (IN) ==
[2020-07-19] MEDS ORDERED: Ondansetron 4 MG/2 ML VIAL IVP PRN (08:03)
[2020-07-19] MEDS ORDERED: *HR* Nalbuphine 10 MG/ML AMPUL IV PRN (08:03)
[2020-07-19] MEDS ORDERED: Famotidine 20 MG/2 ML VIAL IVP PRN (08:03)
[2020-07-19] MEDS ORDERED: Naloxone 0.4 MG/ML INJ IVP PRN (08:03)
[2020-07-19] MEDS ORDERED: Metoclopramide 10 MG/2 ML VIAL IVP PRN (08:03)
[2020-07-19] MEDS ORDERED: Ropivacaine/PF 0.2% 20 ML VIAL EP ONE (09:13)
[2020-07-19] MEDS ORDERED: EPHEDrine 50 MG/ML VIAL IVP PRN (09:13)
[2020-07-19] MEDS ORDERED: *HR* FentaNYL (PF) 100 MCG/2 ML VIAL EP ONE (09:13)
[2020-07-19] MEDS ORDERED: Epidural Premix (fent/bupiv) 110 ML EP SCH (09:15)
[2020-07-19] MEDS ORDERED: miSOPROStoL 25 MCG TABLET PO PRN (09:16)
[2020-07-19 09:33] LABS: Basophils % 0.4 %; Eosinophils # 0.2 K/mcL (0.0-0.6); Eosinophils % 1.4 %; Hematocrit 38.8 % (35.3-44.9); Hemoglobin 12.8 g/dL (11.5-15.4); Immature Granulocytes % 0.9 % (0-4); Lymphocytes # 1.5 K/mcL (0.6-4.6); Lymphocytes % 14.3 %; Mean Corpuscular Hemoglobin 30.1 pg (28.0-33.3); Mean Corpuscular Volume 91.3 fL (83.0-100.0); Mean Platelet Volume 9.9 fL (9.4-12.4); Monocytes # 0.6 K/mcL (0.0-1.3); Monocytes % 5.9 %; Neutrophils # 8.1 K/mcL (1.6-8.9); Platelet Count 220 K/mcL (140-400); Red Blood Count 4.25 M/mcL (3.82-4.97); Red Cell Distribution Width 13.2 % (11.5-14.5); Segmented Neutrophils % 77.1 %; White Blood Count 10.5 K/mcL (4.3-11.1)
[2020-07-19 10:00] LABS: Amphetamine Screen,Urine Negative ng/mL (Cutoff=1000); Barbiturate Screen,Urine Negative ng/mL (Cutoff=200); Benzodiazepines Screen,Urine Negative ng/mL (Cutoff=200); Cannabinoid Screen,Urine Negative ng/mL (Cutoff = 50); Cocaine Screen,Urine Negative ng/mL (Cutoff= 300); Opiate Screen,Urine Negative ng/mL (Cutoff=300); Phencyclidine Screen,Urine Negative ng/mL (Cutoff=25)
[2020-07-19 10:28] LABS: Adenovirus Not Detected (Not Detect); Bordetella Pertussis Not Detected (Not Detect); Chlamydophila pneumoniae Not Detected (Not Detect); Coronavirus 229E Not Detected (Not Detect); Coronavirus HKU1 Not Detected (Not Detect); Coronavirus NL63 DETECTED (Not Detect); Coronavirus OC43 Not Detected (Not Detect); Human Metapneumovirus Not Detected (Not Detect); Human Rhinovirus/Enterovirus DETECTED (Not Detect); Influenza A Subtype 2009 H1 Not Detected (Not Detect); Influenza B Not Detected (Not Detect); Mycoplasma pneumoniae Not Detected (Not Detect); Parainfluenza Virus 1 Not Detected (Not Detect); Parainfluenza Virus 2 Not Detected (Not Detect); Parainfluenza Virus 3 Not Detected (Not Detect); Parainfluenza Virus 4 Not Detected (Not Detect); Respiratory Syncytial Virus Not Detected (Not Detect); SARS-CoV-2 Not Detected (Not Detect)
[2020-07-19] MEDS: Ringers Solution, Lactated 1,000 ML IVC SCH ×2 (11:27→12:09)
[2020-07-19] MEDS ORDERED: Ropivacaine/PF 0.2% 20 ML VIAL ONE (11:42)
[2020-07-19] MEDS ORDERED: *HR* FentaNYL (PF) 100 MCG/2 ML VIAL ONE (11:42)
[2020-07-19] MEDS ORDERED: Oxytocin 20 units/ LR 1000 mL 20 UNIT/1,000 ML BAG IVC SCH (13:45)
[2020-07-19] MEDS ORDERED: Lidocaine 1% 20 ML MDV ONE (15:37)
[2020-07-19] MEDS ORDERED: miSOPROStoL 100 MCG TABLET PO STA ×2 (17:26→18:40)
[2020-07-19] MEDS ORDERED: Lanolin 7 G OINT...G. TP PRN (18:29)
[2020-07-19] MEDS ORDERED: Rho Immune Globulin 1,500 UNIT SYRINGE IM PRN (18:29)
[2020-07-19] MEDS ORDERED: Benzocaine/Menthol 56 GM AEROSOL SPRAY TP PRN (18:29)
[2020-07-19] MEDS: Ibuprofen 600 MG TABLET PO SCH (18:43)
[2020-07-19] MEDS: Acetaminophen 325 MG TABLET PO SCH (18:43)
[2020-07-19] MEDS: Oxytocin 20 units/ LR 1000 mL 20 UNIT/1,000 ML BAG IVC SCH (18:44)
[2020-07-20] MEDS: Acetaminophen 325 MG TABLET PO SCH ×3 (00:10→11:54)
[2020-07-20] MEDS: Ibuprofen 600 MG TABLET PO SCH ×3 (00:10→11:55)
[2020-07-20] MEDS: Oxytocin 20 units/ LR 1000 mL 20 UNIT/1,000 ML BAG IVC SCH (00:11)
[2020-07-20] MEDS ORDERED: miSOPROStoL 25 MCG TABLET PO SCH (06:30)
[2020-07-20 06:33] LABS: Basophils % 0.2 %; Eosinophils # 0.2 K/mcL (0.0-0.6); Eosinophils % 1.4 %; Hematocrit 35.1 % (35.3-44.9); Hemoglobin 11.3 g/dL (11.5-15.4); Immature Granulocytes % 0.7 % (0-4); Lymphocytes # 1.5 K/mcL (0.6-4.6); Lymphocytes % 13.9 %; Mean Corpuscular HGB Conc 32.2 g/dL (31.6-35.5); Mean Corpuscular Volume 93.1 fL (83.0-100.0); Mean Platelet Volume 9.8 fL (9.4-12.4); Monocytes # 0.8 K/mcL (0.0-1.3); Monocytes % 7.1 %; Neutrophils # 8.1 K/mcL (1.6-8.9); Platelet Count 195 K/mcL (140-400); Red Blood Count 3.77 M/mcL (3.82-4.97); Red Cell Distribution Width 13.4 % (11.5-14.5); Segmented Neutrophils % 76.7 %; White Blood Count 10.5 K/mcL (4.3-11.1)
[2020-07-20] MEDS ORDERED: miSOPROStoL 100 MCG TABLET PO SCH ×2 (09:00→12:00)
[2020-07-20] MEDS ORDERED: Prenatal Vit/FA 1 EACH TABLET PO SCH (09:00)
[2020-07-20 10:06] VITALS: BP 110/70
== END 2020-07-20 17:49 | disposition home or self-care (01) | DRG 807 ==
LOC: 1NENULAB 07:55 → 1NENUOBS 18:11
PROVIDERS: ADMIT Obstetrics & Gynecology; ATTEND Obstetrics & Gynecology